=== PATIENT | female | born 1990 | race Caucasian/White ===

== ENCOUNTER → 2024-09-21 | Outpatient (CLI) | payer MEDICAID, SELFPAY ==
--- NOTE | 2024-09-21 15:00 | XR_ITS ---
Examination: Pelvic ultrasound, transabdominal, complete Technique: Transabdominal ultrasound of the pelvis performed using grayscale imaging Date and time of exam: September 21, 2024 1505 hours INDICATIONS: Vaginal bleeding beginning 3 months ago FINDINGS: Uterus 8.9 x 4.1 x 5.7 cm No uterine mass or intrauterine gestation Endometrial stripe 0.7 cm Right ovary 6.6 x 5.4 x 4.7 cm arterial flow, 4.7 cm simple cyst Left ovary 3.5 x 1.3 x 2.1 cm arterial flow IMPRESSION: No uterine mass or intrauterine gestation Right ovarian simple cyst 4.7 x 4.5 x 4.2 cm
--- NOTE | 2024-09-21 15:00 | XR_ITS ---
Examination: Transvaginal ultrasound of the pelvis, complete Technique: Transvaginal sonographic images pelvis performed using brown scale imaging Exam date and time: September 21, 2024 1514 hours. Uterus 8.8 x 4.2 x 5.5 cm No uterine mass. Endometrial stripe 11 mm Right ovary 5.7 x 4.0 x 4.8 cm arterial flow, 4.8 cm simple cyst Left ovary 3.0 x 1.6 x 1.8 cm arterial flow IMPRESSION: No uterine mass or intrauterine gestation Simple right ovarian cyst 4.8 x 3.5 x 4.3 cm.
== END | disposition home or self-care (01) ==
LOC: CDIM 14:18
PROVIDERS: Referring Provider Physician Assistant; Visit Provider Physician Assistant
DX: N83.291 Other ovarian cyst, right side (principal)
CPT/HCPCS: 76830; 76856